=== PATIENT | female | born 1955 | race Caucasian/White ===

== ENCOUNTER 2016-02-18 21:26 | Inpatient (IN) | payer OTHER ==
[~2016-02-18] VITALS: Ht 157.5 cm; Wt 104.3 kg
[2016-02-18 21:26] VITALS: BP 132/72
[~2016-02-18 21:26] MED LIST: ACCUNEB 0.0.63 MG/3; ADVAIR 100/501 E1 INH; ALBUTEROL0.09 MG/A2 INH; ALBUTEROL2.5 MG/0.5 INH; AMOXICILLIN500 MG PO; AZITHROMYCIN250 MG PO; Albuterol Sulfat3 M1 INH; CIPRO500 MG PO; COMBIVENT1 AR1 PO; CRESTOR5 MG; LISINOPRIL/HCTZ1 TA3 PO; MUCINEX600 MG PO; PREDNICOT10 MG PO; PREDNICOT20 MG PO; PREDNISONE10 MG PO; PROVENTIL0.09 MG/AC IH; SINGULAIR10 MG PO; SPIRIVA18 MCG PO; SYMBICORT1 AE1 INH; VIBRAMYCIN100 MG PO
[2016-02-18 22:06] LABS: HEMATOCRIT 41.4 % (37.0-47.0); HEMOGLOBIN 13.5 g/dl (12.0-16.0); MEAN CELL VOLUME 91.2 fl (81.0-99.0); MEAN CORPUSCULAR HGB 29.7 pg (27.0-31.0); MEAN CORPUSCULAR HGB CONC 32.6 g/dl (33.0-37.0); MEAN PLATELET VOLUME 10.9 fl (9.6-12.3); PLATELET COUNT AUTOMATED 266 10*3/uL (130-400); RED BLOOD COUNT 4.54 10*6/uL (4.10-5.10); RED CELL DISTRI WIDTH 13.2 % (0-14.5); WHITE BLOOD COUNT 7.6 10*3/uL (4.8-10.8)
[2016-02-18 22:17] LABS: PROTHROMBIN TIME 10.5 SECONDS (9.0-12.4)
[2016-02-18 22:21] LABS: ALBUMIN 3.5 gm/dl (3.1-4.5); ALKALINE PHOSPHATASE 84 U/L (45-117); BILIRUBIN, TOTAL 0.6 mg/dl (0.2-1.0); BUN 12 mg/dl (7-24); CARBON DIOXIDE 29 mmol/L (21-32); CHLORIDE 102 mmol/L (98-107); EST GLOM FILT AFRICAN AMERICAN > 60 ml/min; GLUCOSE 113 mg/dL (65-99); POTASSIUM 3.5 mmol/L (3.5-5.1); SGOT/AST 35 IU/L (3-35); SGPT/ALT 41 U/L (12-78); SODIUM 142 mmol/L (136-145); TOTAL PROTEIN 7.8 gm/dL (6.4-8.2)
[2016-02-18 22:33] LABS: ATYPICAL LYMPHS 17 % (0-0); BASOPHIL # 0.1 10*3/uL (0-0.1); BASOPHILS 1 % (0-1); LYMPHOCYTE # 3.1 10*3/uL (1.3-4.4); MONOCYTE # 0.5 10*3/uL (0.1-1.0); NEUTROPHIL # 3.9 10*3/uL (2.3-7.9); NEUTROPHILS 51 % (47-73); PLATELET SUFFICIENCY NORMAL (NORMAL); TOTAL CELLS COUNTED 100 #CELLS
[2016-02-18 23:50] VITALS: BP 113/59
[2016-02-19 00:02] LABS: LA>2 REFLEX 2 HR DRAW NOW
[2016-02-19 00:25] LABS: LA>2 RFLX FOLLOW UP AT 2 HRS 2.6 mmol/L (0.4-2.0)
[2016-02-19 00:42] LABS: CKMB 0.7 ng/ml (0.5-3.6)
[2016-02-19 02:14] LABS: LA>2 REFLEX 4 HR DRAW NOW
[2016-02-19 06:43] LABS: HEMOGLOBIN 12.3 g/dl (12.0-16.0); MEAN CELL VOLUME 91.8 fl (81.0-99.0); MEAN CORPUSCULAR HGB 29.7 pg (27.0-31.0); MEAN CORPUSCULAR HGB CONC 32.4 g/dl (33.0-37.0); MEAN PLATELET VOLUME 10.8 fl (9.6-12.3); PLATELET COUNT AUTOMATED 234 10*3/uL (130-400); RED BLOOD COUNT 4.14 10*6/uL (4.10-5.10); RED CELL DISTRI WIDTH 13.3 % (0-14.5); WHITE BLOOD COUNT 4.9 10*3/uL (4.8-10.8)
[2016-02-19 06:57] LABS: CKMB 0.8 ng/ml (0.5-3.6)
[2016-02-19 06:59] LABS: HEMOGLOBIN A1c 5.9 % (4.8-5.6)
[2016-02-19 07:28] LABS: FOLIC ACID 23.29 ng/mL (>5.38)
[2016-02-19 07:33] LABS: PROTHROMBIN TIME 10.5 SECONDS (9.0-12.4)
[2016-02-19 07:36] LABS: ATYPICAL LYMPHS 4 % (0-0); LYMPHOCYTE # 0.9 10*3/uL (1.3-4.4); NEUTROPHIL # 3.9 10*3/uL (2.3-7.9); NEUTROPHILS 80 % (47-73); PLATELET SUFFICIENCY NORMAL (NORMAL); TOTAL CELLS COUNTED 100 #CELLS
[2016-02-19 07:42] LABS: ALBUMIN 3.1 gm/dl (3.1-4.5); ALKALINE PHOSPHATASE 73 U/L (45-117); BILIRUBIN, TOTAL 0.4 mg/dl (0.2-1.0); BUN 11 mg/dl (7-24); CARBON DIOXIDE 28 mmol/L (21-32); CHLORIDE 102 mmol/L (98-107); EST GLOM FILT AFRICAN AMERICAN > 60 ml/min; GLUCOSE 146 mg/dL (65-99); POTASSIUM 3.9 mmol/L (3.5-5.1); SGOT/AST 30 IU/L (3-35); SGPT/ALT 39 U/L (12-78); SODIUM 141 mmol/L (136-145)
[2016-02-19 07:53] LABS: FREE T4 1.5 ng/dl (0.76-1.46); MAGNESIUM 2.2 mg/dL (1.5-2.1); THYROID STIM HORMONE (HS) 0.746 uIU/ml (0.358-4.75)
[2016-02-19 08:00] VITALS: BP 116/76
[2016-02-19] MEDS ORDERED: SINGULAIR10 M1 PO (09:09)
[2016-02-19] MEDS ORDERED: ALBUTEROL SULFAT6 M1 INH (09:09)
[2016-02-19] MEDS ORDERED: LISINOPRIL10 M1 PO (09:10)
[2016-02-19] MEDS ORDERED: PROTONIX40 MG PO (09:10)
[2016-02-19] MEDS ORDERED: METFORMIN500 MG PO (09:10)
[2016-02-19] MEDS ORDERED: HYDR12.5C PO (09:11)
[2016-02-19] MEDS ORDERED: BUSPIRONE15 MG PO (09:11)
[2016-02-19] MEDS ORDERED: SYMBICORT1 AE1 INH (09:11)
[2016-02-19 12:00] VITALS: BP 120/62
[2016-02-19 12:15] LABS: CKMB 0.7 ng/ml (0.5-3.6)
[2016-02-19 13:54] LABS: LA>2 REFLEX 2 HR DRAW NOW
[2016-02-19 14:19] LABS: LA>2 RFLX FOLLOW UP AT 2 HRS 4.2 mmol/L (0.4-2.0)
[2016-02-19 16:00] VITALS: BP 129/62
[2016-02-19 16:08] LABS: LA>2 REFLEX 4 HR DRAW NOW
[2016-02-19 20:00] VITALS: BP 145/70
[2016-02-20] VITALS: BP 138/76
[2016-02-20 06:07] LABS: BUN 10 mg/dl (7-24); CARBON DIOXIDE 27 mmol/L (21-32); CHLORIDE 107 mmol/L (98-107); EST GLOM FILT AFRICAN AMERICAN > 60 ml/min; GLUCOSE 134 mg/dL (65-99); MAGNESIUM 2.1 mg/dL (1.5-2.1); PHOSPHOROUS 2.6 mg/dL (2.5-4.9); POTASSIUM 3.9 mmol/L (3.5-5.1); SODIUM 144 mmol/L (136-145)
[2016-02-20 06:11] LABS: BASO % 0.1 % (0.0-1.0); HEMATOCRIT 36.2 % (37.0-47.0); HEMOGLOBIN 11.6 g/dl (12.0-16.0); LYMPH # 1.2 10*3/uL (1.3-4.4); LYMPH % 13.7 % (27.0-41.0); MEAN CELL VOLUME 94.3 fl (81.0-99.0); MEAN CORPUSCULAR HGB 30.2 pg (27.0-31.0); MEAN PLATELET VOLUME 11.2 fl (9.6-12.3); MONO # 0.5 10*3/uL (0.1-1.0); MONO % 5.7 % (3.0-9.0); NEUT # 6.7 10*3/uL (2.3-7.9); PLATELET COUNT AUTOMATED 255 10*3/uL (130-400); RED BLOOD COUNT 3.84 10*6/uL (4.10-5.10); RED CELL DISTRI WIDTH 13.7 % (0-14.5); WHITE BLOOD COUNT 8.4 10*3/uL (4.8-10.8)
[2016-02-20 07:50] LABS: LA>2 REFLEX 2 HR DRAW NOW
[2016-02-20 08:00] VITALS: BP 138/66
[2016-02-20 08:10] LABS: LA>2 RFLX FOLLOW UP AT 2 HRS 2.9 mmol/L (0.4-2.0)
[2016-02-20 09:57] LABS: LA>2 REFLEX 4 HR DRAW NOW
[2016-02-20 12:00] VITALS: BP 145/70
[2016-02-20 16:00] VITALS: BP 149/65
[2016-02-20 16:43] LABS: LA>2 REFLEX 2 HR DRAW NOW
[2016-02-20 17:05] LABS: LA>2 RFLX FOLLOW UP AT 2 HRS 4.5 mmol/L (0.4-2.0)
[2016-02-20 18:53] LABS: LA>2 REFLEX 4 HR DRAW NOW
[2016-02-20 20:00] VITALS: BP 147/58
[2016-02-21] VITALS: BP 159/79
[2016-02-21 07:13] LABS: LA>2 REFLEX 2 HR DRAW NOW
[2016-02-21 07:34] LABS: LA>2 RFLX FOLLOW UP AT 2 HRS 2.4 mmol/L (0.4-2.0)
[2016-02-21 08:00] VITALS: BP 144/70
[2016-02-21 09:25] LABS: LA>2 REFLEX 4 HR DRAW NOW
[2016-02-21 12:00] VITALS: BP 135/76
[2016-02-21 16:00] VITALS: BP 129/69
[2016-02-21 20:00] VITALS: BP 136/73
[2016-02-22] VITALS: BP 152/60
[2016-02-22 07:55] LABS: LA>2 REFLEX 2 HR DRAW NOW
[2016-02-22 08:00] VITALS: BP 134/70
[2016-02-22 08:13] LABS: LA>2 RFLX FOLLOW UP AT 2 HRS 2.9 mmol/L (0.4-2.0)
[2016-02-22 10:05] LABS: LA>2 REFLEX 4 HR DRAW NOW
[2016-02-22 12:00] VITALS: BP 126/72
[2016-02-22 13:28] LABS: ABG BASE EXCESS 0.1 mmol/L (-2.0-2.0); ABG CO2 CONTENT 23.8 mmol/L (23-27); ABG HCO3 22.8 mmol/l (22-26); ABG TEMPERATURE 97.5 F (98.0-99.0); ARTERIAL BLOOD GAS PH 7.469 (7.35-7.45); ARTERIAL BLOOD GAS PO2 66.3 mmHg (80-90)
[2016-02-22 16:00] VITALS: BP 143/58
[2016-02-22 20:00] VITALS: BP 127/79
[2016-02-23] VITALS: BP 131/67
[2016-02-23 07:04] LABS: HEMATOCRIT 38.6 % (37.0-47.0); HEMOGLOBIN 12.7 g/dl (12.0-16.0); MEAN CELL VOLUME 92.1 fl (81.0-99.0); MEAN CORPUSCULAR HGB 30.3 pg (27.0-31.0); MEAN CORPUSCULAR HGB CONC 32.9 g/dl (33.0-37.0); MEAN PLATELET VOLUME 10.8 fl (9.6-12.3); NUCLEATED RED BLOOD CELL 0.3 % (0.0-0.0); PLATELET COUNT AUTOMATED 362 10*3/uL (130-400); RED BLOOD COUNT 4.19 10*6/uL (4.10-5.10); RED CELL DISTRI WIDTH 14.1 % (0-14.5); WHITE BLOOD COUNT 10.5 10*3/uL (4.8-10.8)
[2016-02-23 07:26] LABS: BUN 12 mg/dl (7-24); CARBON DIOXIDE 28 mmol/L (21-32); CHLORIDE 103 mmol/L (98-107); EST GLOM FILT AFRICAN AMERICAN > 60 ml/min; GLUCOSE 124 mg/dL (65-99); POTASSIUM 4.3 mmol/L (3.5-5.1); SODIUM 141 mmol/L (136-145)
[2016-02-23 07:38] LABS: ATYPICAL LYMPHS 1 % (0-0); LYMPHOCYTE # 1.6 10*3/uL (1.3-4.4); METAMYELOCYTES 1 % (0-0); MONOCYTE # 0.9 10*3/uL (0.1-1.0); MYELOCYTES 2 % (0-0); NEUTROPHIL # 7.7 10*3/uL (2.3-7.9); NEUTROPHILS 73 % (47-73); PLATELET SUFFICIENCY NORMAL (NORMAL); POLYCHROMASIA SLIGHT; TOTAL CELLS COUNTED 100 #CELLS
[2016-02-23 08:00] VITALS: BP 146/65
[2016-02-23] MEDS ORDERED: LEVAQUIN750 M1 PO (11:13)
[2016-02-23] MEDS ORDERED: PREDNISONE50 MG PO (11:13)
[2016-02-23] MEDS ORDERED: GLYBURIDE5 MG PO (11:13)
[2016-02-23] MEDS ORDERED: [UNRECOGNIZED DRUG - OTHER] MC (11:15)
[2016-02-23] MEDS ORDERED: OXYGEN NAS (11:22)
== END 2016-02-23 13:17 | disposition home or self-care (01) | DRG 871 ==
LOC: ED 21:26 → 4E 22:40 → 5E 22:40 → EDHOLD 22:40 → 4E 23:11 → 5E 02-19 14:30
PROVIDERS: Emergency Medicine Emergency Medical Services; Internal Medicine; Internal Medicine Hospice and Palliative Medicine
DX: A41.9 Sepsis, unspecified organism (principal); J18.9 Pneumonia, unspecified organism; J96.20 Acute and chronic respiratory failure, unspecified whether with hypoxia or hypercapnia; Z99.81 Dependence on supplemental oxygen; E44.0 Moderate protein-calorie malnutrition; J44.1 Chronic obstructive pulmonary disease with (acute) exacerbation; J44.0 Chronic obstructive pulmonary disease with (acute) lower respiratory infection; Z68.41 Body mass index [BMI] 40.0-44.9, adult; E66.01 Morbid (severe) obesity due to excess calories; E83.41 Hypermagnesemia; J20.9 Acute bronchitis, unspecified; I10 Essential (primary) hypertension; E78.5 Hyperlipidemia, unspecified; R73.9 Hyperglycemia, unspecified; Z79.899 Other long term (current) drug therapy

== ENCOUNTER 2017-02-04 20:05 | Inpatient (IN) | payer OTHER ==
[~2017-02-04] VITALS: Ht 157.4 cm; Wt 112.7 kg
[~2017-02-04 20:05] MED LIST changes: +ALBUTEROL SULFAT6 M1 INH; +BUSPIRONE15 MG PO; +GLYBURIDE5 MG PO; +HYDR12.5C PO; +LEVAQUIN750 M1 PO; +LISINOPRIL10 M1 PO; +METFORMIN500 MG PO; +OXYGEN NAS; +PREDNISONE50 MG PO; +PROTONIX40 MG PO; +SINGULAIR10 M1 PO; +[UNRECOGNIZED DRUG - OTHER] MC
[2017-02-04 20:16] VITALS: BP 132/75
[2017-02-04 21:07] LABS: BASO # 0.1 10*3/uL (0.0-0.1); BASO % 0.6 % (0.0-1.0); EOS # 0.3 10*3/uL (0.0-0.4); EOS % 2.6 % (1.0-4.0); HEMATOCRIT 43.5 % (37.0-47.0); HEMOGLOBIN 14.6 g/dl (12.0-16.0); LYMPH # 1.8 10*3/uL (1.3-4.4); LYMPH % 14.6 % (27.0-41.0); MEAN CELL VOLUME 89.5 fl (81.0-99.0); MEAN CORPUSCULAR HGB CONC 33.6 g/dl (33.0-37.0); MEAN PLATELET VOLUME 9.4 fl (9.6-12.3); MONO # 0.8 10*3/uL (0.1-1.0); NEUT # 9.6 10*3/uL (2.3-7.9); PLATELET COUNT AUTOMATED 365 10*3/uL (130-400); RED BLOOD COUNT 4.86 10*6/uL (4.10-5.10); WHITE BLOOD COUNT 12.6 10*3/uL (4.8-10.8)
[2017-02-04 21:22] LABS: ALBUMIN 3.6 gm/dl (3.1-4.5); ALKALINE PHOSPHATASE 118 U/L (45-117); BUN 8 mg/dl (7-24); CHLORIDE 96 mmol/L (98-107); CREATININE 0.73 mg/dL (0.55-1.02); POTASSIUM 3.8 mmol/L (3.5-5.1); SGOT/AST 24 IU/L (3-35); SGPT/ALT 29 U/L (12-78); SODIUM 134 mmol/L (136-145); TOTAL PROTEIN 8.6 gm/dL (6.4-8.2)
[2017-02-04 23:29] LABS: BILIRUBIN NEGATIVE (NEGATIVE); BLOOD NEGATIVE (NEGATIVE); CLARITY SL CLOUDY (CLEAR); COLOR YELLOW (YELLOW); GLUCOSE NEGATIVE (NEGATIVE); KETONE NEGATIVE (NEGATIVE); LEUKO ESTERASE NEGATIVE (NEGATIVE); NITRITE NEGATIVE (NEGATIVE); PH 6.5 (5.0-9.0); UROBILINOGEN 0.2 E.U./dl (0.2-1.0)
[2017-02-04 23:33] LABS: WBC 0-2 wbc/hpf (0-5)
[2017-02-04 23:36] VITALS: BP 141/72
[2017-02-04 23:40] VITALS: BP 139/90
--- NOTE | 2017-02-04 23:43 | NUR ---
Time: 2342 A 61 year old FENALE admitted to 4E under services of BRENNEN WATSON DO, Pt. arrived via wheel chair from ER. Chief complaint: COPD EXACERBATION. RICHARDSON MONTOYA
--- NOTE | 2017-02-04 23:56 | NUR ---
IV ROCEPHIN GIVEN TO RICHARDSON RN TO BE ADMINISTERED UPSTAIRS
--- NOTE | 2017-02-05 02:39 | NUR ---
PATIENT GIVEN MORPHINE PER PT REQUEST FOR CHEST DISCOMFORT RATED 8/10 AND DESCRIBED A SHARP PAIN THAT MAKES HER NOT ABLE TO BREATHE. PULSE OX IS 96%. CALL LIGHT WITHIN REACH. WILL CONTINUE TO MONITOR AND REASSESS.
--- NOTE | 2017-02-05 05:00 | NUR ---
PATIENT WAS AWAKE THROUGHOUT THE NIGHT WITHOUT SLEEPING. PATIENT WAS ANXIOUS AND WOULD COMPLAIN OF NOT BEING ABLE TO BREATHE THROUGHOUT THE ENTIRE NIGHT WITH A PULSE OX OF 97%. PATIENT WOULD REFUSE TO AMBULATE TO [facility] WITHOUT ASSISTANCE AND STATED SHE WAS UNABLE TO GET BACK INTO BED WITHOUT HELP. CALL LIGHT IS WITHIN REACH. SEE ASSESSMENT.
[2017-02-05 07:58] LABS: BASO % 0.2 % (0.0-1.0); HEMATOCRIT 40.4 % (37.0-47.0); HEMOGLOBIN 13.4 g/dl (12.0-16.0); LYMPH # 1.1 10*3/uL (1.3-4.4); LYMPH % 11.6 % (27.0-41.0); MEAN CELL VOLUME 91.8 fl (81.0-99.0); MEAN CORPUSCULAR HGB 30.5 pg (27.0-31.0); MEAN CORPUSCULAR HGB CONC 33.2 g/dl (33.0-37.0); MONO % 0.4 % (3.0-9.0); NEUT # 8.5 10*3/uL (2.3-7.9); NEUT % 87.1 % (47.0-73.0); PLATELET COUNT AUTOMATED 334 10*3/uL (130-400); WHITE BLOOD COUNT 9.8 10*3/uL (4.8-10.8)
[2017-02-05 08:00] VITALS: BP 133/81
[2017-02-05 08:13] LABS: ALBUMIN 2.8 gm/dl (3.1-4.5); BUN 6 mg/dl (7-24); CHLORIDE 104 mmol/L (98-107); POTASSIUM 3.9 mmol/L (3.5-5.1); SODIUM 139 mmol/L (136-145)
[2017-02-05 08:23] LABS: ALKALINE PHOSPHATASE 97 U/L (45-117); CHOLESTEROL 156 mg/dL (<200); CREATININE 0.62 mg/dL (0.55-1.02); FREE T4 1.25 ng/dl (0.76-1.46); HDL CHOLESTEROL 42 mg/dl (40-60); LDL CHOLESTEROL 102 mg/dL (9-159); PHOSPHOROUS 2.7 mg/dL (2.5-4.9); SGOT/AST 20 IU/L (3-35); SGPT/ALT 24 U/L (12-78); THYROID STIM HORMONE (HS) 0.897 uIU/ml (0.358-4.75); TOTAL PROTEIN 7.2 gm/dL (6.4-8.2); TRIGLYCERIDES 59 mg/dl (<150); VLDL CHOLESTEROL 12 mg/dL (6-40)
--- NOTE | 2017-02-05 09:00 | NUR ---
Patient anxious and ask alot of questions. Respirations easy and regular. Dyspenic with exertion. Vital signs stable. No overt distress. SERVANDO DAMON
[2017-02-05 09:16] LABS: VITAMIN D, 25-HYDROXY 31.1 ng/mL (30-100)
[2017-02-05 12:00] VITALS: BP 132/88
--- NOTE | 2017-02-05 15:15 | NUR ---
PT MEDICATED WITH ATIVAN IV FOR C/O ANXIETY PRIOR TO CTA. WILL MONITOR
[2017-02-05 16:00] VITALS: BP 115/74
--- NOTE | 2017-02-05 18:07 | NUR ---
DR MCGEE NOTIFIED OF CTA RESULTS.
[2017-02-05 20:00] VITALS: BP 114/45
[2017-02-05 20:45] LABS: URINE AMPHETAMINES < 1000 (1000ng/ml); URINE BARBITURATES < 200 (200ng/ml); URINE BENZODIAZEPINES < 200 (200ng/ml); URINE CANNABINOIDS (THC) < 50 (50ng/ml); URINE COCAINE < 300 (300ng/ml); URINE METHADONE < 300 (300ng/ml); URINE OPIATES < 300 (300ng/ml)
[2017-02-05 20:53] LABS: URINE PHENCYCLIDINE < 25 (25ng/ml)
--- NOTE | 2017-02-05 23:55 | NUR ---
NOTIFIED OF PATIENT REQUESTING TO WEAR CPAP FROM HOME. INSTRUCTED TO PUT ORDER IN. OKAY TO USE CPAP QHS WITH SETTINGS FROM HOME.
[2017-02-06] VITALS: BP 106/40
--- NOTE | 2017-02-06 04:21 | NUR ---
PATIENT ASLEEP IN BED AT THIS TIME. RESPIRATIONS EASY, NO S/S OF DISTRESS NOTED ON CPAP FROM HOME. WILL MONITOR. CALL LIGHT LEFT IN REACH.
[2017-02-06 06:16] LABS: BUN 11 mg/dl (7-24); CHLORIDE 103 mmol/L (98-107); CREATININE 0.89 mg/dL (0.55-1.02); POTASSIUM 3.9 mmol/L (3.5-5.1); SODIUM 140 mmol/L (136-145)
[2017-02-06 06:40] LABS: BASO % 0.1 % (0.0-1.0); HEMATOCRIT 36.2 % (37.0-47.0); HEMOGLOBIN 11.7 g/dl (12.0-16.0); LYMPH # 1.2 10*3/uL (1.3-4.4); LYMPH % 7.9 % (27.0-41.0); MEAN CELL VOLUME 92.8 fl (81.0-99.0); MEAN CORPUSCULAR HGB CONC 32.3 g/dl (33.0-37.0); MEAN PLATELET VOLUME 10.1 fl (9.6-12.3); MONO # 0.5 10*3/uL (0.1-1.0); NEUT # 13.3 10*3/uL (2.3-7.9); NEUT % 88.4 % (47.0-73.0); PLATELET COUNT AUTOMATED 312 10*3/uL (130-400); RED CELL DISTRI WIDTH 13.3 % (0-14.5)
[2017-02-06 08:00] VITALS: BP 116/50
--- NOTE | 2017-02-06 08:30 | NUR ---
[facility] Practitioner in to talk to patient. Patient states lives with her daughter. There are no steps in the home. Physician: Dr. Emile Coffey Pharmacy: [facility] services: none Patient's level of ADLs: MINIMAL ASSIST Patient has working utilities: yes DME: oxygen, nebulizer, c-pap Follow-up physician's appointment after d/c: will be made by hospitalist nurse director upon discharge Does patient want to access PORTAL?: no Discharge plan discussed with patient. She lives with her daughter. She is independent in her ADLs and ambulation per the patient. When medically stable she will be discharged to home. KAYLYNN CHONG
[2017-02-06 12:00] VITALS: BP 104/44
[2017-02-06 16:00] VITALS: BP 116/50
[2017-02-06 20:00] VITALS: BP 102/84
--- NOTE | 2017-02-06 22:13 | NUR ---
PATIENT REQUESTED AND RECEIVED [place] PER PRN ORDER FOR C/O INCREASED ANXIETY. WILL MONITOR EFFECTIVENESS. CALL LIGHT LEFT IN REACH.
--- NOTE | 2017-02-06 23:01 | NUR ---
EARLIER MEDICATION EFFECTIVE PER PATIENT. WILL CONTINUE TO MONITOR. CALL LIGHT LEFT IN REACH.
[2017-02-07] VITALS: BP 128/65
--- NOTE | 2017-02-07 00:49 | NUR ---
PATIENT C/O SOB WITH INCREASED ANXIETY. PATIENT PLACED ON CPAP FROM HOME AND OXYGEN SATURATION 95-96% CURRENTLY. PATIENT ENCOURAGED TO FOCUS ON BREATHING AND TAKING DEEP BREATHS. RESPIRATORY CALLED AT THIS TIME TO ADMINISTER BREATHING TREATMENT PER PRN ORDER. STATES SOMEONE WILL BE UP SHORTLY. WILL MONITOR PATIENT. CALL LIGHT IN REACH.
--- NOTE | 2017-02-07 01:05 | NUR ---
RESPIRATORY IN ROOM TO ADMINISTER BREATHING TX. PATIENT ENCOURAGED TO CONTINUE TO FOCUS ON BREATHING. PATIENT APPEARS MUCH MORE RELAXED AT THIS TIME. WILL CONTINUE TO MONITOR. CALL LIGHT IN REACH.
[2017-02-07 07:14] LABS: BASO % 0.1 % (0.0-1.0); EOS % 0.1 % (1.0-4.0); HEMATOCRIT 37.3 % (37.0-47.0); HEMOGLOBIN 12.3 g/dl (12.0-16.0); LYMPH # 1.1 10*3/uL (1.3-4.4); MEAN CELL VOLUME 92.8 fl (81.0-99.0); MEAN CORPUSCULAR HGB 30.6 pg (27.0-31.0); MEAN PLATELET VOLUME 9.8 fl (9.6-12.3); MONO # 0.5 10*3/uL (0.1-1.0); NEUT # 13.5 10*3/uL (2.3-7.9); NEUT % 89.3 % (47.0-73.0); PLATELET COUNT AUTOMATED 312 10*3/uL (130-400); RED BLOOD COUNT 4.02 10*6/uL (4.10-5.10); RED CELL DISTRI WIDTH 13.7 % (0-14.5); WHITE BLOOD COUNT 15.2 10*3/uL (4.8-10.8)
[2017-02-07 07:54] LABS: CHLORIDE 104 mmol/L (98-107); POTASSIUM 3.6 mmol/L (3.5-5.1); SODIUM 141 mmol/L (136-145)
[2017-02-07 08:00] VITALS: BP 110/50
[2017-02-07 08:04] LABS: BUN 15 mg/dl (7-24); CREATININE 0.76 mg/dL (0.55-1.02); PHOSPHOROUS 2.9 mg/dL (2.5-4.9)
--- NOTE | 2017-02-07 08:30 | NUR ---
[employer] Handler in to see patient. No new needs or request at this time. When medically stable she will be discharged to home with her daughter.
[2017-02-07 12:00] VITALS: BP 136/58
--- NOTE | 2017-02-07 13:31 | NUR ---
PATIENT VOICED NO NEEDS AT THIS TIME. STILL WEARING 3.5L OF O2 VIA NC. DENIES PAIN. CALL LIGHT WITHIN REACH.
[2017-02-07 16:00] VITALS: BP 115/55
[2017-02-07 20:00] VITALS: BP 101/54
[2017-02-08] VITALS: BP 102/73
--- NOTE | 2017-02-08 00:34 | NUR ---
24 HR chart check completed.
[2017-02-08 05:51] LABS: BUN 16 mg/dl (7-24); CHLORIDE 102 mmol/L (98-107); CREATININE 0.79 mg/dL (0.55-1.02); POTASSIUM 3.7 mmol/L (3.5-5.1); SODIUM 142 mmol/L (136-145)
[2017-02-08 05:52] LABS: PHOSPHOROUS 3.5 mg/dL (2.5-4.9)
[2017-02-08 05:53] LABS: BASO % 0.1 % (0.0-1.0); HEMATOCRIT 36.8 % (37.0-47.0); LYMPH # 1.7 10*3/uL (1.3-4.4); LYMPH % 14.9 % (27.0-41.0); MEAN CELL VOLUME 92.2 fl (81.0-99.0); MEAN CORPUSCULAR HGB 30.1 pg (27.0-31.0); MEAN CORPUSCULAR HGB CONC 32.6 g/dl (33.0-37.0); MEAN PLATELET VOLUME 9.9 fl (9.6-12.3); MONO # 0.8 10*3/uL (0.1-1.0); MONO % 6.8 % (3.0-9.0); NEUT % 77.2 % (47.0-73.0); PLATELET COUNT AUTOMATED 308 10*3/uL (130-400); RED BLOOD COUNT 3.99 10*6/uL (4.10-5.10); RED CELL DISTRI WIDTH 13.7 % (0-14.5); WHITE BLOOD COUNT 11.6 10*3/uL (4.8-10.8)
[2017-02-08 08:00] VITALS: BP 124/62
--- NOTE | 2017-02-08 08:30 | NUR ---
[employer] Tub[employer] Backer in to see patient. No new needs or requests at this time. When medically stable she will be discharged to home with her daughter.
[2017-02-08 12:00] VITALS: BP 132/62
[2017-02-08 16:00] VITALS: BP 128/64
[2017-02-08 20:00] VITALS: BP 120/55
[2017-02-09] VITALS: BP 117/67
--- NOTE | 2017-02-09 02:41 | NUR ---
PATIENT RECLINED IN BED ALL NIGHT. PATIENT MOVES PER SELF IN BED. NO COMPLAINTS VOICED. PATIENT HAS SLEPT ALL NIGHT. OXYGEN INTACT.
--- NOTE | 2017-02-09 03:04 | NUR ---
24 HR chart check completed.
[2017-02-09 04:00] VITALS: BP 124/65
--- NOTE | 2017-02-09 04:41 | NUR ---
PATIENT SITTING UPRIGHT IN BED, CPAP INTACT. PATIENT APPEARS TO BE SLEEPING. NO S/S OF DISTRESS NOTED.
[2017-02-09 08:00] VITALS: BP 152/62
[2017-02-09] MEDS ORDERED: DOXYCYCLINE100 M3 PO (12:27)
--- NOTE | 2017-02-09 13:25 | NUR ---
Discharge instructions reviewed with patient/family. Patient receptive and verbalizes understanding. Follow-up care arranged. Written instructions given to patient/family. LIAN OLIVER
--- NOTE | 2017-02-09 13:25 | NUR ---
Patient resting quietly with no c/o discomfort. Respirations easy and regular. Vital signs stable. No overt distress. LIAN OLIVER
== END 2017-02-09 13:25 | disposition home or self-care (01) | DRG 871 ==
LOC: ED 20:05 → EDHOLD 22:28 → 4E 22:28
PROVIDERS: Hospitalist; Internal Medicine; Internal Medicine Nephrology; Nurse Practitioner; ADMIT Internal Medicine
PROC: 5A09357 Assistance with Respiratory Ventilation, Less than 24 Consecutive Hours, Continuous Positive Airway Pressure (ICD-10-PCS; 2017-02-07)
PROC: 5A09357 Assistance with Respiratory Ventilation, Less than 24 Consecutive Hours, Continuous Positive Airway Pressure (ICD-10-PCS; principal; 2017-02-08)
DX: A41.9 Sepsis, unspecified organism (principal); J18.9 Pneumonia, unspecified organism; E44.0 Moderate protein-calorie malnutrition; E88.81 Metabolic syndrome and other insulin resistance; Z99.81 Dependence on supplemental oxygen; E66.01 Morbid (severe) obesity due to excess calories; J44.0 Chronic obstructive pulmonary disease with (acute) lower respiratory infection; J44.1 Chronic obstructive pulmonary disease with (acute) exacerbation; J98.11 Atelectasis; K76.0 Fatty (change of) liver, not elsewhere classified; I10 Essential (primary) hypertension; E78.5 Hyperlipidemia, unspecified; G47.33 Obstructive sleep apnea (adult) (pediatric); R73.9 Hyperglycemia, unspecified; Z79.899 Other long term (current) drug therapy; Z87.891 Personal history of nicotine dependence; Z80.9 Family history of malignant neoplasm, unspecified; Z82.49 Family history of ischemic heart disease and other diseases of the circulatory system; Z79.51 Long term (current) use of inhaled steroids; Z68.39 Body mass index [BMI] 39.0-39.9, adult

== ENCOUNTER 2017-02-11 10:19 | Inpatient (IN) | payer OTHER ==
[~2017-02-11] VITALS: Ht 157.4 cm; Wt 122.7 kg
--- NOTE | ~2017-02-11 | EKG ---
[place], [place] ELECTROCARDIOGRAM REPORT NAME: RANDI BENÍTEZ UNIT #: [id number] ROOM: 406 DOCTOR: FREDERICK HIGGINBOTHAM MD,KIRA BIRTHDATE: [birth year] DOS: 02/11/2017 The electrocardiogram done on 02/11/2017 at 3:41 p.m. Atrial flutter was noted with 2:1 block with the current electrocardiogram with nonspecific ST-T changes. KIRA MACK MD CM:EKGRPT:ELECTROCARDIOGRAM REPORT [id number] KIRA HIGGINBOTHAM MD
--- NOTE | ~2017-02-11 | EKG ---
[place], [place] ELECTROCARDIOGRAM REPORT NAME: RANDI BENÍTEZ UNIT #: [id number] ROOM: 406 DOCTOR: FREDERICK HIGGINBOTHAM MD,KIRA BIRTHDATE: [birth year] DOS: 02/11/2017 The electrocardiogram was done on 02/11/2017 at 6:03 p.m. Sinus tachycardia noted with heart rate of 108 beats per minute. The APC was noted with nonspecific ST-T changes. KIRA MACK MD CM:EKGRPT:ELECTROCARDIOGRAM REPORT 1428 [id number] KIRA HIGGINBOTHAM MD
--- NOTE | ~2017-02-11 | EKG ---
[place], [place] ELECTROCARDIOGRAM REPORT NAME: RANDI BENÍTEZ UNIT #: [id number] ROOM: 406 DOCTOR: FREDERICK HIGGINBOTHAM MD,KIRA BIRTHDATE: [birth year] DOS: 02/11/2017 The electrocardiogram was done 02/11/2017 at 10:57 a.m. Atrial fibrillation noted moderate to rapid ventricular response with heart rate 103 beats per minute. Nonspecific ST-T changes noted. KIRA MACK MD CM:EKGRPT:ELECTROCARDIOGRAM REPORT 1430 1443 KIRA HIGGINBOTHAM MD
[~2017-02-11 10:19] MED LIST changes: +DOXYCYCLINE100 M3 PO
[2017-02-11 10:22] VITALS: BP 152/77
[2017-02-11 10:40] VITALS: BP 153/77
[2017-02-11 11:00] LABS: BASO % 0.2 % (0.0-1.0); EOS # 0.4 10*3/uL (0.0-0.4); EOS % 3.5 % (1.0-4.0); HEMATOCRIT 45.5 % (37.0-47.0); HEMOGLOBIN 15.2 g/dl (12.0-16.0); LYMPH # 2.2 10*3/uL (1.3-4.4); LYMPH % 17.9 % (27.0-41.0); MEAN CELL VOLUME 90.3 fl (81.0-99.0); MEAN CORPUSCULAR HGB 30.2 pg (27.0-31.0); MEAN CORPUSCULAR HGB CONC 33.4 g/dl (33.0-37.0); MEAN PLATELET VOLUME 9.5 fl (9.6-12.3); MONO # 0.6 10*3/uL (0.1-1.0); MONO % 5.1 % (3.0-9.0); NEUT # 8.9 10*3/uL (2.3-7.9); NEUT % 72.1 % (47.0-73.0); PLATELET COUNT AUTOMATED 265 10*3/uL (130-400); RED BLOOD COUNT 5.04 10*6/uL (4.10-5.10); RED CELL DISTRI WIDTH 13.7 % (0-14.5); WHITE BLOOD COUNT 12.4 10*3/uL (4.8-10.8)
[2017-02-11 11:09] LABS: ACT PARTIAL THROMBO TIME 21.9 SECONDS (20.8-31.5)
[2017-02-11 11:18] LABS: ALBUMIN 3.2 gm/dl (3.1-4.5); ALKALINE PHOSPHATASE 80 U/L (45-117); BUN 11 mg/dl (7-24); CHLORIDE 97 mmol/L (98-107); CREATININE 0.77 mg/dL (0.55-1.02); POTASSIUM 3.9 mmol/L (3.5-5.1); SGOT/AST 19 IU/L (3-35); SGPT/ALT 28 U/L (12-78); SODIUM 137 mmol/L (136-145); TOTAL PROTEIN 6.9 gm/dL (6.4-8.2)
[2017-02-11 11:23] LABS: TROPONIN I < 0.015 ng/ml (<0.045)
[2017-02-11 11:38] VITALS: BP 127/68
[2017-02-11 12:52] VITALS: BP 148/84
[2017-02-11 16:00] VITALS: BP 132/65
[2017-02-11 20:00] VITALS: BP 123/79
[2017-02-12] VITALS: BP 130/78
[2017-02-12 06:39] LABS: BASO % 0.1 % (0.0-1.0); HEMATOCRIT 39.7 % (37.0-47.0); LYMPH # 1.4 10*3/uL (1.3-4.4); LYMPH % 11.6 % (27.0-41.0); MEAN CELL VOLUME 92.8 fl (81.0-99.0); MEAN CORPUSCULAR HGB 30.1 pg (27.0-31.0); MEAN CORPUSCULAR HGB CONC 32.5 g/dl (33.0-37.0); MONO # 0.4 10*3/uL (0.1-1.0); NEUT # 9.9 10*3/uL (2.3-7.9); NEUT % 84.4 % (47.0-73.0); PLATELET COUNT AUTOMATED 248 10*3/uL (130-400); RED BLOOD COUNT 4.28 10*6/uL (4.10-5.10); RED CELL DISTRI WIDTH 13.9 % (0-14.5); WHITE BLOOD COUNT 11.7 10*3/uL (4.8-10.8)
[2017-02-12 06:41] LABS: HEMOGLOBIN 12.9 g/dl (12.0-16.0)
[2017-02-12 07:07] LABS: ACT PARTIAL THROMBO TIME 21.4 SECONDS (20.8-31.5)
[2017-02-12 07:08] LABS: ALBUMIN 2.7 gm/dl (3.1-4.5); ALKALINE PHOSPHATASE 70 U/L (45-117); BUN 13 mg/dl (7-24); CHLORIDE 99 mmol/L (98-107); CREATININE 0.87 mg/dL (0.55-1.02); FREE T4 1.35 ng/dl (0.76-1.46); PHOSPHOROUS 3.4 mg/dL (2.5-4.9); SGOT/AST 13 IU/L (3-35); SGPT/ALT 25 U/L (12-78); SODIUM 138 mmol/L (136-145); TOTAL PROTEIN 6.1 gm/dL (6.4-8.2)
[2017-02-12 07:13] LABS: THYROID STIM HORMONE (HS) 0.533 uIU/ml (0.358-4.75)
[2017-02-12 08:00] VITALS: BP 134/62
[2017-02-12 08:27] LABS: VITAMIN D, 25-HYDROXY 31.4 ng/mL (30-100)
[2017-02-12 12:00] VITALS: BP 120/52
[2017-02-12 16:00] VITALS: BP 109/53
[2017-02-12 20:00] VITALS: BP 107/57
[2017-02-13] VITALS: BP 101/57
[2017-02-13 06:17] LABS: BASO % 0.1 % (0.0-1.0); HEMATOCRIT 37.6 % (37.0-47.0); HEMOGLOBIN 12.4 g/dl (12.0-16.0); LYMPH # 1.7 10*3/uL (1.3-4.4); LYMPH % 10.5 % (27.0-41.0); MEAN CELL VOLUME 92.6 fl (81.0-99.0); MEAN CORPUSCULAR HGB 30.5 pg (27.0-31.0); MEAN PLATELET VOLUME 10.2 fl (9.6-12.3); MONO # 0.7 10*3/uL (0.1-1.0); NEUT # 13.6 10*3/uL (2.3-7.9); NEUT % 84.5 % (47.0-73.0); PLATELET COUNT AUTOMATED 272 10*3/uL (130-400); RED BLOOD COUNT 4.06 10*6/uL (4.10-5.10); RED CELL DISTRI WIDTH 14.4 % (0-14.5); WHITE BLOOD COUNT 16.1 10*3/uL (4.8-10.8)
[2017-02-13 06:24] LABS: ALBUMIN 2.7 gm/dl (3.1-4.5); BUN 16 mg/dl (7-24); CHLORIDE 100 mmol/L (98-107); CREATININE 0.85 mg/dL (0.55-1.02); POTASSIUM 4.5 mmol/L (3.5-5.1); SGOT/AST 20 IU/L (3-35); SGPT/ALT 23 U/L (12-78); SODIUM 138 mmol/L (136-145); TOTAL PROTEIN 6.1 gm/dL (6.4-8.2)
[2017-02-13 06:37] LABS: ALKALINE PHOSPHATASE 61 U/L (45-117)
[2017-02-13 08:00] VITALS: BP 111/61
[2017-02-13 12:00] VITALS: BP 131/65
[2017-02-13 16:00] VITALS: BP 109/52
[2017-02-13 20:00] VITALS: BP 125/61
[2017-02-14] VITALS: BP 118/59
[2017-02-14 06:30] LABS: BASO % 0.2 % (0.0-1.0); EOS % 0.1 % (1.0-4.0); HEMATOCRIT 39.7 % (37.0-47.0); HEMOGLOBIN 13.1 g/dl (12.0-16.0); LYMPH # 1.4 10*3/uL (1.3-4.4); LYMPH % 11.6 % (27.0-41.0); MEAN CORPUSCULAR HGB 30.7 pg (27.0-31.0); MEAN PLATELET VOLUME 9.8 fl (9.6-12.3); MONO # 0.7 10*3/uL (0.1-1.0); MONO % 6.1 % (3.0-9.0); NEUT # 9.5 10*3/uL (2.3-7.9); NEUT % 80.6 % (47.0-73.0); PLATELET COUNT AUTOMATED 256 10*3/uL (130-400); RED BLOOD COUNT 4.27 10*6/uL (4.10-5.10); RED CELL DISTRI WIDTH 14.4 % (0-14.5); WHITE BLOOD COUNT 11.8 10*3/uL (4.8-10.8)
[2017-02-14 07:05] LABS: BUN 16 mg/dl (7-24); CHLORIDE 98 mmol/L (98-107); CREATININE 0.84 mg/dL (0.55-1.02); POTASSIUM 4.2 mmol/L (3.5-5.1); SODIUM 137 mmol/L (136-145)
[2017-02-14 08:00] VITALS: BP 118/65
[2017-02-14 16:00] VITALS: BP 111/69
[2017-02-14 20:00] VITALS: BP 115/57
[2017-02-15] VITALS: BP 137/58
[2017-02-15 07:17] LABS: BASO % 0.2 % (0.0-1.0); HEMATOCRIT 39.3 % (37.0-47.0); HEMOGLOBIN 12.9 g/dl (12.0-16.0); LYMPH # 1.8 10*3/uL (1.3-4.4); LYMPH % 15.7 % (27.0-41.0); MEAN CELL VOLUME 91.6 fl (81.0-99.0); MEAN CORPUSCULAR HGB 30.1 pg (27.0-31.0); MEAN CORPUSCULAR HGB CONC 32.8 g/dl (33.0-37.0); MEAN PLATELET VOLUME 9.7 fl (9.6-12.3); MONO # 1.1 10*3/uL (0.1-1.0); MONO % 9.2 % (3.0-9.0); NEUT # 8.5 10*3/uL (2.3-7.9); NEUT % 73.3 % (47.0-73.0); PLATELET COUNT AUTOMATED 249 10*3/uL (130-400); RED BLOOD COUNT 4.29 10*6/uL (4.10-5.10); RED CELL DISTRI WIDTH 14.6 % (0-14.5); WHITE BLOOD COUNT 11.6 10*3/uL (4.8-10.8)
[2017-02-15 07:58] LABS: BUN 17 mg/dl (7-24); CHLORIDE 97 mmol/L (98-107); CREATININE 0.96 mg/dL (0.55-1.02); POTASSIUM 4.1 mmol/L (3.5-5.1); SODIUM 137 mmol/L (136-145)
[2017-02-15 08:00] VITALS: BP 131/61
[2017-02-15 11:58] VITALS: BP 124/60
[2017-02-15 15:50] VITALS: BP 95/60
[2017-02-15 20:00] VITALS: BP 114/67
[2017-02-16] VITALS: BP 120/58
[2017-02-16 08:00] VITALS: BP 147/67
[2017-02-16 12:00] VITALS: BP 132/75
[2017-02-16] MEDS ORDERED: LEVAQUIN500 M2 PO (15:22)
[2017-02-16] MEDS ORDERED: PREDNISONE10 MG PO (15:22)
[2017-02-16] MEDS ORDERED: MUCINEX1200 M1 PO (15:22)
== END 2017-02-16 16:40 | disposition home or self-care (01) | DRG 871 ==
LOC: ED 10:19 → 4E 11:43 → EDHOLD 11:43 → 4E 11:57
PROVIDERS: Emergency Medicine; Internal Medicine; Internal Medicine Nephrology
PROC: 5A09357 Assistance with Respiratory Ventilation, Less than 24 Consecutive Hours, Continuous Positive Airway Pressure (ICD-10-PCS; principal; 2017-02-13)
DX: A41.9 Sepsis, unspecified organism (principal); J18.9 Pneumonia, unspecified organism; J96.00 Acute respiratory failure, unspecified whether with hypoxia or hypercapnia; J44.1 Chronic obstructive pulmonary disease with (acute) exacerbation; J44.0 Chronic obstructive pulmonary disease with (acute) lower respiratory infection; Z68.42 Body mass index [BMI] 45.0-49.9, adult; E87.8 Other disorders of electrolyte and fluid balance, not elsewhere classified; E83.41 Hypermagnesemia; R07.89 Other chest pain; I10 Essential (primary) hypertension; E78.5 Hyperlipidemia, unspecified; E66.01 Morbid (severe) obesity due to excess calories; G47.30 Sleep apnea, unspecified; D72.810 Lymphocytopenia; Z99.81 Dependence on supplemental oxygen; Z87.891 Personal history of nicotine dependence; Z80.9 Family history of malignant neoplasm, unspecified; Z82.49 Family history of ischemic heart disease and other diseases of the circulatory system; Z91.010 Allergy to peanuts; Z79.899 Other long term (current) drug therapy

== ENCOUNTER 2017-02-27 10:34 | Emergency (ER) | payer OTHER ==
[~2017-02-27] VITALS: Ht 157.4 cm; Wt 108.9 kg
[~2017-02-27 10:34] MED LIST changes: +LEVAQUIN500 M2 PO; +MUCINEX1200 M1 PO
[2017-02-27 10:53] LABS: BASO # 0.1 10*3/uL (0.0-0.1); BASO % 0.7 % (0.0-1.0); EOS # 0.3 10*3/uL (0.0-0.4); EOS % 3.2 % (1.0-4.0); HEMATOCRIT 40.5 % (37.0-47.0); HEMOGLOBIN 14.1 g/dl (12.0-16.0); LYMPH # 2.2 10*3/uL (1.3-4.4); LYMPH % 23.1 % (27.0-41.0); MEAN CELL VOLUME 88.6 fl (81.0-99.0); MEAN CORPUSCULAR HGB 30.9 pg (27.0-31.0); MEAN CORPUSCULAR HGB CONC 34.8 g/dl (33.0-37.0); MEAN PLATELET VOLUME 9.5 fl (9.6-12.3); MONO # 0.8 10*3/uL (0.1-1.0); NEUT # 6.1 10*3/uL (2.3-7.9); NEUT % 64.7 % (47.0-73.0); PLATELET COUNT AUTOMATED 184 10*3/uL (130-400); RED BLOOD COUNT 4.57 10*6/uL (4.10-5.10); RED CELL DISTRI WIDTH 13.8 % (0-14.5); WHITE BLOOD COUNT 9.4 10*3/uL (4.8-10.8)
[2017-02-27 11:08] LABS: ALBUMIN 3.4 gm/dl (3.1-4.5); ALKALINE PHOSPHATASE 84 U/L (45-117); BUN 9 mg/dl (7-24); CHLORIDE 94 mmol/L (98-107); CREATININE 0.78 mg/dL (0.55-1.02); LIPASE 193 U/L (73-393); POTASSIUM 3.7 mmol/L (3.5-5.1); SGOT/AST 28 IU/L (3-35); SGPT/ALT 44 U/L (12-78); SODIUM 132 mmol/L (136-145); TOTAL PROTEIN 6.9 gm/dL (6.4-8.2)
[2017-02-27] MEDS ORDERED: MIRALAX POWDER17 G1 PO (13:39)
== END 2017-02-27 14:13 | disposition home or self-care (01) ==
LOC: ED 10:34
PROVIDERS: Nurse Practitioner Family
DX: K59.00 Constipation, unspecified (principal); J44.9 Chronic obstructive pulmonary disease, unspecified; E78.5 Hyperlipidemia, unspecified; I10 Essential (primary) hypertension; E78.00 Pure hypercholesterolemia, unspecified; E66.01 Morbid (severe) obesity due to excess calories; Z68.42 Body mass index [BMI] 45.0-49.9, adult; Z87.891 Personal history of nicotine dependence; Z79.899 Other long term (current) drug therapy; Z91.010 Allergy to peanuts

== ENCOUNTER 2017-06-05 10:32 | Inpatient (IN) | payer OTHER ==
[~2017-06-05] VITALS: Ht 157.5 cm; Wt 105.0 kg
[~2017-06-05 10:32] MED LIST changes: +MIRALAX POWDER17 G1 PO
[2017-06-05 10:33] VITALS: BP 140/94
[2017-06-05 11:04] LABS: BASO # 0.1 10*3/uL (0.0-0.1); BASO % 0.8 % (0.0-1.0); EOS % 6.4 % (1.0-4.0); HEMATOCRIT 38.1 % (37.0-47.0); HEMOGLOBIN 12.8 g/dl (12.0-16.0); LYMPH # 2.8 10*3/uL (1.3-4.4); LYMPH % 17.7 % (27.0-41.0); MEAN CELL VOLUME 90.3 fl (81.0-99.0); MEAN CORPUSCULAR HGB 30.3 pg (27.0-31.0); MEAN CORPUSCULAR HGB CONC 33.6 g/dl (33.0-37.0); MEAN PLATELET VOLUME 9.6 fl (9.6-12.3); MONO # 0.9 10*3/uL (0.1-1.0); NEUT # 10.7 10*3/uL (2.3-7.9); NEUT % 68.7 % (47.0-73.0); PLATELET COUNT AUTOMATED 321 10*3/uL (130-400); RED BLOOD COUNT 4.22 10*6/uL (4.10-5.10); RED CELL DISTRI WIDTH 12.8 % (0-14.5); WHITE BLOOD COUNT 15.6 10*3/uL (4.8-10.8)
[2017-06-05 11:11] VITALS: BP 133/81
[2017-06-05 11:14] LABS: ACT PARTIAL THROMBO TIME 24.5 SECONDS (20.8-31.5)
[2017-06-05 11:21] LABS: ALKALINE PHOSPHATASE 92 U/L (45-117); BUN 7 mg/dl (7-24); CHLORIDE 99 mmol/L (98-107); CREATININE 0.63 mg/dL (0.55-1.02); POTASSIUM 3.4 mmol/L (3.5-5.1); SGOT/AST 18 IU/L (3-35); SGPT/ALT 14 U/L (12-78); SODIUM 136 mmol/L (136-145); TOTAL PROTEIN 7.9 gm/dL (6.4-8.2)
[2017-06-05 11:24] LABS: TROPONIN I < 0.015 ng/ml (<0.045)
[2017-06-05 11:46] VITALS: BP 142/74
[2017-06-05 12:00] VITALS: BP 144/73
[2017-06-05] MEDS ORDERED: LACTULOSE10 GM/151 PO (14:14)
[2017-06-05 17:41] VITALS: BP 116/60
[2017-06-05 20:54] VITALS: BP 122/59
[2017-06-06] VITALS: BP 126/63
[2017-06-06 06:28] LABS: BASO % 0.1 % (0.0-1.0); HEMATOCRIT 37.3 % (37.0-47.0); HEMOGLOBIN 11.9 g/dl (12.0-16.0); LYMPH # 1.5 10*3/uL (1.3-4.4); LYMPH % 9.9 % (27.0-41.0); MEAN CELL VOLUME 93.3 fl (81.0-99.0); MEAN CORPUSCULAR HGB 29.8 pg (27.0-31.0); MEAN CORPUSCULAR HGB CONC 31.9 g/dl (33.0-37.0); MEAN PLATELET VOLUME 10.1 fl (9.6-12.3); MONO # 0.4 10*3/uL (0.1-1.0); MONO % 2.4 % (3.0-9.0); NEUT % 86.8 % (47.0-73.0); PLATELET COUNT AUTOMATED 320 10*3/uL (130-400); RED CELL DISTRI WIDTH 12.6 % (0-14.5)
[2017-06-06 06:47] LABS: BUN 8 mg/dl (7-24); CHLORIDE 103 mmol/L (98-107); CREATININE 0.74 mg/dL (0.55-1.02); PHOSPHOROUS 3.3 mg/dL (2.5-4.9); POTASSIUM 3.6 mmol/L (3.5-5.1); SODIUM 139 mmol/L (136-145)
[2017-06-06 06:53] LABS: THYROID STIM HORMONE (HS) 0.588 uIU/ml (0.358-4.75)
[2017-06-06 07:52] LABS: VITAMIN D, 25-HYDROXY 23.7 ng/mL (30-100)
[2017-06-06 08:00] VITALS: BP 130/56
[2017-06-06 12:00] VITALS: BP 112/52
[2017-06-06 16:00] VITALS: BP 101/46
[2017-06-06 20:00] VITALS: BP 111/46
[2017-06-07] VITALS: BP 106/50
[2017-06-07 06:47] LABS: BASO % 0.1 % (0.0-1.0); BUN 14 mg/dl (7-24); CHLORIDE 105 mmol/L (98-107); CREATININE 0.76 mg/dL (0.55-1.02); HEMATOCRIT 35.6 % (37.0-47.0); HEMOGLOBIN 11.2 g/dl (12.0-16.0); LYMPH # 1.1 10*3/uL (1.3-4.4); LYMPH % 6.7 % (27.0-41.0); MEAN CELL VOLUME 96.2 fl (81.0-99.0); MEAN CORPUSCULAR HGB 30.3 pg (27.0-31.0); MEAN CORPUSCULAR HGB CONC 31.5 g/dl (33.0-37.0); MEAN PLATELET VOLUME 10.7 fl (9.6-12.3); MONO # 0.6 10*3/uL (0.1-1.0); MONO % 3.4 % (3.0-9.0); NEUT # 14.8 10*3/uL (2.3-7.9); NEUT % 88.9 % (47.0-73.0); PLATELET COUNT AUTOMATED 339 10*3/uL (130-400); POTASSIUM 3.8 mmol/L (3.5-5.1); RED CELL DISTRI WIDTH 13.1 % (0-14.5); SODIUM 142 mmol/L (136-145); WHITE BLOOD COUNT 16.7 10*3/uL (4.8-10.8)
[2017-06-07 08:00] VITALS: BP 124/52; BP 125/52
[2017-06-07 12:00] VITALS: BP 129/50
[2017-06-07 16:00] VITALS: BP 108/61
[2017-06-07 20:00] VITALS: BP 118/57
[2017-06-08] VITALS: BP 123/45
[2017-06-08 08:00] VITALS: BP 126/66
[2017-06-08 12:00] VITALS: BP 111/54
[2017-06-08 16:00] VITALS: BP 136/73
[2017-06-08 20:00] VITALS: BP 120/61
[2017-06-09] VITALS: BP 125/59
[2017-06-09 07:09] LABS: HEMATOCRIT 35.5 % (37.0-47.0); HEMOGLOBIN 11.4 g/dl (12.0-16.0); MEAN CELL VOLUME 93.7 fl (81.0-99.0); MEAN CORPUSCULAR HGB 30.1 pg (27.0-31.0); MEAN CORPUSCULAR HGB CONC 32.1 g/dl (33.0-37.0); MEAN PLATELET VOLUME 10.4 fl (9.6-12.3); NUCLEATED RED BLOOD CELL 0.2 % (0.0-0.0); PLATELET COUNT AUTOMATED 321 10*3/uL (130-400); RED BLOOD COUNT 3.79 10*6/uL (4.10-5.10); RED CELL DISTRI WIDTH 13.2 % (0-14.5); WHITE BLOOD COUNT 12.6 10*3/uL (4.8-10.8)
[2017-06-09 07:41] LABS: ALBUMIN 2.7 gm/dl (3.1-4.5); ALKALINE PHOSPHATASE 60 U/L (45-117); BUN 15 mg/dl (7-24); CHLORIDE 101 mmol/L (98-107); CREATININE 0.83 mg/dL (0.55-1.02); POTASSIUM 3.8 mmol/L (3.5-5.1); SGOT/AST 21 IU/L (3-35); SGPT/ALT 23 U/L (12-78); SODIUM 140 mmol/L (136-145); TOTAL PROTEIN 6.6 gm/dL (6.4-8.2)
[2017-06-09 08:00] VITALS: BP 133/70
[2017-06-09 08:03] LABS: ATYPICAL LYMPHS 1 % (0-0); PLATELET SUFFICIENCY NORMAL (NORMAL); TOTAL CELLS COUNTED 100 #CELLS
[2017-06-09 12:00] VITALS: BP 140/58
[2017-06-09 16:00] VITALS: BP 128/70
[2017-06-09 20:00] VITALS: BP 149/85
[2017-06-10] VITALS: BP 126/68
[2017-06-10 06:36] LABS: HEMATOCRIT 37.1 % (37.0-47.0); HEMOGLOBIN 11.9 g/dl (12.0-16.0); MEAN CORPUSCULAR HGB 29.8 pg (27.0-31.0); MEAN CORPUSCULAR HGB CONC 32.1 g/dl (33.0-37.0); MEAN PLATELET VOLUME 10.1 fl (9.6-12.3); NUCLEATED RED BLOOD CELL 0.1 % (0.0-0.0); PLATELET COUNT AUTOMATED 339 10*3/uL (130-400); RED BLOOD COUNT 3.99 10*6/uL (4.10-5.10); WHITE BLOOD COUNT 13.5 10*3/uL (4.8-10.8)
[2017-06-10 07:04] LABS: ALBUMIN 2.9 gm/dl (3.1-4.5); BUN 18 mg/dl (7-24); CHLORIDE 100 mmol/L (98-107); CREATININE 0.89 mg/dL (0.55-1.02); SGOT/AST 25 IU/L (3-35); SGPT/ALT 33 U/L (12-78); SODIUM 140 mmol/L (136-145)
[2017-06-10 07:05] LABS: ALKALINE PHOSPHATASE 59 U/L (45-117); TOTAL PROTEIN 6.5 gm/dL (6.4-8.2)
[2017-06-10 07:28] LABS: ATYPICAL LYMPHS 2 % (0-0); PLATELET SUFFICIENCY NORMAL (NORMAL); TOTAL CELLS COUNTED 100 #CELLS
[2017-06-10 08:00] VITALS: BP 145/74
[2017-06-10 12:00] VITALS: BP 122/53
[2017-06-10 16:00] VITALS: BP 119/59
[2017-06-10 20:00] VITALS: BP 142/50
[2017-06-11] VITALS: BP 126/65
[2017-06-11 06:56] LABS: BUN 21 mg/dl (7-24); CHLORIDE 96 mmol/L (98-107); CREATININE 0.86 mg/dL (0.55-1.02); POTASSIUM 4.4 mmol/L (3.5-5.1); SODIUM 136 mmol/L (136-145)
[2017-06-11 07:51] LABS: HEMATOCRIT 39.8 % (37.0-47.0); HEMOGLOBIN 12.5 g/dl (12.0-16.0); MEAN CORPUSCULAR HGB 29.8 pg (27.0-31.0); MEAN CORPUSCULAR HGB CONC 31.4 g/dl (33.0-37.0); MEAN PLATELET VOLUME 10.1 fl (9.6-12.3); NUCLEATED RED BLOOD CELL 0.3 % (0.0-0.0); PLATELET COUNT AUTOMATED 339 10*3/uL (130-400); RED BLOOD COUNT 4.19 10*6/uL (4.10-5.10); RED CELL DISTRI WIDTH 13.2 % (0-14.5); WHITE BLOOD COUNT 15.3 10*3/uL (4.8-10.8)
[2017-06-11 08:00] VITALS: BP 136/68
[2017-06-11 08:49] LABS: TOTAL CELLS COUNTED 100 #CELLS
[2017-06-11 08:50] LABS: PLATELET SUFFICIENCY NORMAL (NORMAL); TOXIC GRANULATION SLIGHT; VACUOLATION OF NEUTROPHILS SLIGHT
[2017-06-11 12:00] VITALS: BP 150/71
[2017-06-11] MEDS ORDERED: LOPRESSOR25 MG PO (13:39)
[2017-06-11] MEDS ORDERED: PREDNISONE10 MG PO (13:39)
[2017-06-11] MEDS ORDERED: DOXYCYCLINE100 M3 PO (13:39)
== END 2017-06-11 14:08 | disposition home or self-care (01) | DRG 871 ==
LOC: ED 10:32 → 5E 11:34 → EDHOLD 11:34 → 5E 11:51
PROVIDERS: Emergency Medicine; Internal Medicine; Nurse Practitioner Family; Student in an Organized Health Care Education/Training Program
DX: A41.9 Sepsis, unspecified organism (principal); J18.1 Lobar pneumonia, unspecified organism; J96.20 Acute and chronic respiratory failure, unspecified whether with hypoxia or hypercapnia; Z99.81 Dependence on supplemental oxygen; E44.0 Moderate protein-calorie malnutrition; J44.1 Chronic obstructive pulmonary disease with (acute) exacerbation; J44.0 Chronic obstructive pulmonary disease with (acute) lower respiratory infection; Z68.42 Body mass index [BMI] 45.0-49.9, adult; E87.6 Hypokalemia; R65.20 Severe sepsis without septic shock; L30.9 Dermatitis, unspecified; M94.0 Chondrocostal junction syndrome [Tietze]; I10 Essential (primary) hypertension; E78.5 Hyperlipidemia, unspecified; E66.01 Morbid (severe) obesity due to excess calories; E55.9 Vitamin D deficiency, unspecified; E11.9 Type 2 diabetes mellitus without complications; Z91.010 Allergy to peanuts; Z79.899 Other long term (current) drug therapy; Z87.01 Personal history of pneumonia (recurrent); Z87.891 Personal history of nicotine dependence; Z82.49 Family history of ischemic heart disease and other diseases of the circulatory system; Z80.8 Family history of malignant neoplasm of other organs or systems; Z79.4 Long term (current) use of insulin; Z91.018 Allergy to other foods